=== PATIENT | female | born 1995 | race Caucasian/White ===

== ENCOUNTER → 2021-08-28 | Outpatient (CLI) | payer MEDICAID, SELFPAY ==
--- NOTE | 2021-08-28 11:05 | US_ITS ---
STUDY: SUPERFICIAL ULTRASOUND - SOFT TISSUE NECK REASON FOR EXAM: Female, 26 years old. Inflammed lymph node inferior to right ear -- Attention to paratoid, area behind/below r ear TECHNIQUE: A superficial ultrasound was performed with real-time and static boone-scale imaging. COMPARISON: None. FINDINGS: Multiple longitudinal and transverse ultrasound images of the right side of neck demonstrate a normal appearance to the parotid gland with normal size, morphology, and echogenicity. Some normal-sized lymph nodes are seen within the superficial lobe and in surrounding soft tissues. US/Head/Neck Soft Tissue IMPRESSION: Normal ultrasound of the right parotid gland. Electronically Signed: Daniel Hendricks MD at 16:15 EDT ,
== END | disposition home or self-care (01) ==
LOC: US 11:04
PROVIDERS: Referring Provider Surgery; Visit Provider Surgery
DX: I89.9 Noninfective disorder of lymphatic vessels and lymph nodes, unspecified (principal)
CPT/HCPCS: 76536

== ENCOUNTER → 2022-08-16 | Outpatient (CLI) | payer MEDICAID, SELFPAY ==
[2022-08-16 10:49] LABS: Absolute Lymphocyte Count 2.49 X10^3/uL (0.83-4.51); Absolute Neutrophil Count 5.4 X10^3/uL (2.0-7.7); Basophil# 0.05 X10^3/uL; Basophil% 0.5 % (0-1); Eosinophil# 1.23 X10^3/uL; Eosinophils% 12.8 % (0-5); Hemoglobin 14.7 g/dL (12.0-15.0); Lymphocyte # 2.49 X10^3/ul (0.83-4.51); Mean Corp Hgb Conc 33.4 g/dL (32-36); Mean Corpuscular Hgb 29.8 pg (27.0-32.0); Mean Corpuscular Volume 89.2 fL (81-99); Mean Platelet Vol. 8.2 fl (6.2-12.0); Monocyte% 4.2 % (0-10); NRBC Flagged by Analyzer 0 % (0-5); Neutrophil # 5.39 X10^3/uL (2.7-7.7); Neutrophil % 56.2 % (47-70); Platelet Count 232 K/mm3 (150-450); RBC Distribution Width CV 12.4 % (11.6-14.6); RBC Distribution Width SD 40.7 fl (35.1-43.9); Red Blood Count 4.93 M/mm3 (4.2-5.4); White Blood Count 9.6 K/mm3 (4.4-11.0)
[2022-08-16 11:09] LABS: ALB/GLOB Ratio 1.2 RATIO (0.9-2.4); AST(SGOT) 8 U/L (15-37); Alanine Aminotransfer ALT/SGPT 18 U/L (13-56); Albumin, Serum 3.9 g/dL (3.2-5.0); Alkaline Phosphatase 89 U/L (45-117); Anion Gap 4 (5-15); BUN 8 mg/dL (7-18); BUN/Creat Ratio 11.6 RATIO (10-20); Chloride 112 mmol/L (98-107); Creatinine, Serum 0.69 mg/dL (0.55-1.02); EST Glomerular Filtration Rate 107 mL/min (>60); Est Glom Filt Rate - Afr Amer 130 mL/min (>60); Globulin 3.2 g/dL (2.2-4.2); Glucose 96 mg/dL (74-106); Potassium 3.9 mmol/L (3.5-5.1); Protein, Total 7.1 g/dL (6.4-8.2); Sodium Level 140 mmol/L (136-145); Thyroid Stim Hormone (TSH) 0.89 uIU/mL (0.358-3.74)
[2022-08-16 11:38] LABS: Vitamin D,25 Hydroxy 34.7 ng/mL
== END | disposition home or self-care (01) ==
PROVIDERS: Referring Provider Psychiatry & Neurology Neurology; Visit Provider Psychiatry & Neurology Neurology
DX: K58.0 Irritable bowel syndrome with diarrhea (principal); G40.909 Epilepsy, unspecified, not intractable, without status epilepticus; E55.9 Vitamin D deficiency, unspecified; R63.6 Underweight
CPT/HCPCS: 36415; 80053; 82306; 83735; 84443; 85025; 95819

== ENCOUNTER → 2022-08-20 | Outpatient (CLI) | payer MEDICAID, SELFPAY ==
[2022-08-20 15:53] LABS: Absolute Lymphocyte Count 2.37 X10^3/uL (0.83-4.51); Absolute Neutrophil Count 3.6 X10^3/uL (2.0-7.7); Basophil# 0.07 X10^3/uL; Eosinophil# 0.82 X10^3/uL; Eosinophils% 11.2 % (0-5); Hematocrit 45.5 % (37-47); Hemoglobin 15.6 g/dL (12.0-15.0); Lymphocyte # 2.37 X10^3/ul (0.83-4.51); Lymphocyte % 32.3 % (19-41); Mean Corp Hgb Conc 34.3 g/dL (32-36); Mean Corpuscular Hgb 30.5 pg (27.0-32.0); Mean Platelet Vol. 8.4 fl (6.2-12.0); Monocyte# 0.45 X10^3/uL; Monocyte% 6.1 % (0-10); NRBC Flagged by Analyzer 0 % (0-5); Neutrophil # 3.61 X10^3/uL (2.7-7.7); Neutrophil % 49.3 % (47-70); Platelet Count 253 K/mm3 (150-450); RBC Distribution Width CV 12.3 % (11.6-14.6); RBC Distribution Width SD 40.3 fl (35.1-43.9); Red Blood Count 5.11 M/mm3 (4.2-5.4); White Blood Count 7.3 K/mm3 (4.4-11.0)
[2022-08-20 16:37] LABS: ALB/GLOB Ratio 1.3 RATIO (0.9-2.4); AST(SGOT) 9 U/L (15-37); Alanine Aminotransfer ALT/SGPT 18 U/L (13-56); Albumin, Serum 4.4 g/dL (3.2-5.0); Alkaline Phosphatase 91 U/L (45-117); Anion Gap 5 (5-15); BUN 6 mg/dL (7-18); BUN/Creat Ratio 9.7 RATIO (10-20); CRP < 2.90 mg/L (0.0-3.0); Calcium,Total 9.1 mg/dL (8.5-10.1); Chloride 112 mmol/L (98-107); Creatinine, Serum 0.62 mg/dL (0.55-1.02); EST Glomerular Filtration Rate 122 mL/min (>60); Est Glom Filt Rate - Afr Amer 147 mL/min (>60); Globulin 3.3 g/dL (2.2-4.2); Glucose 80 mg/dL (74-106); LDH 170 U/L (84-246); Potassium 3.3 mmol/L (3.5-5.1); Protein, Total 7.7 g/dL (6.4-8.2); Sodium Level 141 mmol/L (136-145)
[2022-08-20 16:56] LABS: Erythrocyte Sedimentation Rate 3 mm/hr (0-30)
[2022-08-23 08:12] LABS: Endomysial Antibody IgA Negative (Negative); Immunoglobulin A 76 mg/dL (87-352); t-Transglutaminase IgA <2 U/mL (0-3)
[2022-08-25 06:09] LABS: Albumin 4.4 g/dL (2.9-4.4); Alpha-1-Globulins 0.3 g/dL (0.0-0.4); Alpha-2-Globulins 0.8 g/dL (0.4-1.0); Cytoplasmic Ab (C-ANCA) <1:20 titer (Neg:<1:20); Gamma Globulin 0.9 g/dL (0.4-1.8); Immunoglobulin A 85 mg/dL (87-352); Immunoglobulin E 337 IU/mL (6-495); Immunoglobulin G 1036 mg/dL (586-1602); Immunoglobulin M 77 mg/dL (26-217); PROEL- TOTAL PROTEIN 7.1 g/dL (6.0-8.5); Perinuclear Ab (P-ANCA) <1:20 titer (Neg:<1:20)
== END | disposition home or self-care (01) ==
PROVIDERS: PCP Nurse Practitioner Family; Referring Provider Internal Medicine Gastroenterology; Visit Provider Internal Medicine Gastroenterology
DX: R19.5 Other fecal abnormalities (principal)
CPT/HCPCS: 80053; 82784; 82785; 83516; 83615; 84165; 85025; 85652; 86003; 86005; 86140; 86225; 86235; 86255; 86256; 86334

== ENCOUNTER → 2022-08-23 | Outpatient (CLI) | payer MEDICAID, SELFPAY ==
--- NOTE | 2022-08-23 10:44 | MRI_ITS ---
INDICATION: Generalized seizures EXAMINATION: MRI - MR Brain WO/W Contrast TECHNIQUE: MRI examination of brain obtained with standard protocol including multiplanar multiecho imaging. Pre and Postcontrast imaging obtained. IV Contrast Dosage and Agent: 9 mL Clariscan COMPARISON: None. FINDINGS: HEMISPHERES, CEREBELLUM AND BRAINSTEM: 1. The cerebral parenchyma, ventricular system, subarachnoid spaces have normal configuration and density. There is a normal gyral pattern. There is normal boone/white differentiation. No midline shift.. 2. The hemispheric white matter has normal appearance. No areas fluid restriction or acute ischemic change. 3. There is a symmetric appearance and medial temporal lobes including the amygdala and hippocampus. No evidence of focal boone matter abnormalities. 4. No intraparenchymal mass, hemorrhage, or acute territorial infarct. 5. The cerebellum, brainstem, basilar and suprasellar cisterns have normal appearance. No Chiari malformation. 6. No areas of abnormal intraparenchymal or extra-axial contrast enhancement. PITUITARY: Infundibulum and pituitary have normal configuration. Midline structures appear normal. CSF SPACES: Appropriate for age. No hydrocephalus. Basal cisterns are patent. VESSELS: 1. There are normal flow voids noted in the great vessels at the skull base ORBITS AND PARANASAL SINUSES: 1. Both globes, extraocular muscles, optic nerves and retrobulbar fat appear unremarkable. 2. Paranasal sinuses are clear. BONY ELEMENTS: Bony elements of the cranial vault, facial skeleton and skull base have normal appearance. SCALP AND SOFT TISSUES: Normal appearance of the soft tissues of the scalp and the visualized face OTHER: None MRI/Brain W/WO Contrast IMPRESSION: 1. No intracranial mass, hemorrhage, or acute territorial infarct. No areas of abnormal contrast enhancement. 2. Symmetric appearance of medial temporal lobes including the amygdala and hippocampus without focal boone matter abnormality. No evidence of migrational or developmental abnormalities. No structural abnormality identified to correspond to history of seizure. 3. No radiographically significant sinus disease. Electronically Signed: Daniel Mckeon MD at 22:13 EDT ,
== END | disposition home or self-care (01) ==
LOC: MRI 10:41
PROVIDERS: PCP Nurse Practitioner Family; Referring Provider Psychiatry & Neurology Neurology; Visit Provider Psychiatry & Neurology Neurology
DX: G40.909 Epilepsy, unspecified, not intractable, without status epilepticus (principal)
CPT/HCPCS: 70553; A9575

== ENCOUNTER → 2022-11-14 | Outpatient (CLI) | payer MEDICAID, SELFPAY ==
--- NOTE | 2022-11-14 09:31 | MRI_ITS ---
STUDY: MR ENTEROGRAPHY WITH CONTRAST REASON FOR EXAM: Female, 27 years old. R19.5 - Other fecal abnormalities --chronic diarrhea TECHNIQUE: Multipulse sequence MRI performed with IV contrast according to standard MR enterography protocol following administration of oral contrast for maximal bowel distention. Images were obtained from the dome of the diaphragm to the symphysis pubis. IV clariscan 9ml was administered intravenously. TECHNICAL QUALITY: Image Quality: Satisfactory Small Bowel Distension: Adequate. COMPARISON: None. FINDINGS: Bowel: Bowel wall thickening: Absent. Skip lesions: None. Vascularity: Normal. Enhancement: Normal. Fistula: None. Abscess: None. Other Findings: The lung bases are unremarkable. The visualized portions of the heart are within normal limits Normal liver. Normal gallbladder and extrahepatic biliary system. Normal spleen. Normal pancreas. Normal bilateral adrenal glands. Normal right kidney. Normal left kidney. Normal visualized stomach. Normal colon. The appendix is visualized and appears normal. Normal abdominal aorta. Normal interior vena cava. Normal retroperitoneum. Normal urinary bladder. Normal abdominal wall. Normal osseous structures. MRI/Enterography Abd/Pel IMPRESSION: Normal MR enterography. No bowel wall thickening/mucosal enhancement/bowel stratification/active enteritis. Electronically Signed: Caleb Ferris MD ([place]) at 16:09 EDT Reading Location ID and State: / [place] , Service support ,
[2022-11-14 10:21] VITALS: BP 137/75; PULSE 97; RESP 16; TEMP 36.7; O2SAT 100; BMI 16.9
[2022-11-14] MEDS: Glucagon 1 MG/ML Syringe IV (11:06)
[2022-11-14] MEDS: 0.9% Saline Lock 10 ML Syringe IV (11:08)
[2022-11-14 11:24] VITALS: BP 129/71; PULSE 90; RESP 15; O2SAT 100
== END | disposition home or self-care (01) ==
LOC: MRI 09:11
PROVIDERS: PCP Nurse Practitioner Family; Referring Provider Internal Medicine Gastroenterology; Visit Provider Internal Medicine Gastroenterology
DX: R19.5 Other fecal abnormalities (principal)
CPT/HCPCS: 74183; 96374; A9575; A4216; J1610

== ENCOUNTER → 2022-11-16 | Outpatient (CLI) | payer MEDICAID, SELFPAY ==
[2022-11-20 21:07] LABS: Pancreatic Elastase, Fecal > 500 (>200)
[2022-11-26 22:06] LABS: Calprotectin, Stool 6 ug/g (0-120); Fats, Neutral Normal (.); Fats, Total Normal (.)
== END | disposition home or self-care (01) ==
LOC: LABSPEC 10:42
PROVIDERS: Referring Provider Internal Medicine Gastroenterology; Visit Provider Internal Medicine Gastroenterology
DX: K58.9 Irritable bowel syndrome, unspecified (principal); R19.5 Other fecal abnormalities
CPT/HCPCS: 82653; 82705; 83630; 83993; 87177; 87209; 87329; 87493; 87506

== ENCOUNTER → 2022-12-06 | Outpatient (CLI) | payer MEDICAID, SELFPAY ==
[2022-12-06 15:23] LABS: Potassium 3.1 mmol/L (3.5-5.1)
== END | disposition home or self-care (01) ==
LOC: MTLAB 12:47
PROVIDERS: Referring Provider Psychiatry & Neurology Neurology; Visit Provider Psychiatry & Neurology Neurology
DX: E87.6 Hypokalemia (principal)
CPT/HCPCS: 36415; 84132

== ENCOUNTER → 2022-12-27 | Outpatient (CLI) | payer MEDICAID, SELFPAY ==
--- NOTE | 2022-12-27 10:32 | NM_ITS ---
CLINICAL: 27-year-old female with history of abdominal pain. SEMI-SOLID PHASE 99m Tc SULFUR COLLOID GASTRIC EMPTYING STUDY COMPARISON: MRI of the abdomen report 11/14/2022 FINDINGS: The patient was administered 1.0 mCi of 99m Tc sulfur colloid mixed with oatmeal and consumed per os. Image acquisitions in the anterior -posterior projections were obtained for 60 minutes. There is prompt visualization of the stomach. There is no gastroesophageal reflux identified. The T ? raw data emptying was calculated to be 51.59 minutes, (Normal: 12-56 minutes). NM/Gastric Emptying Study IMPRESSION: 1. NORMAL 99m Tc sulfur colloid semi-solid phase (oatmeal) gastric emptying imaging examination. A. There is upper limits of normal and overall preserved semi-solid phase gastric emptying compared to normal controls. (Kyung et al, J Nucl Med Tech 38: 186, 2010). Electronically Signed: Daniel Santillan DO at 22:32 EDT ,
== END | disposition home or self-care (01) ==
LOC: NM 10:29
PROVIDERS: Referring Provider Internal Medicine Gastroenterology; Visit Provider Internal Medicine Gastroenterology
DX: R19.5 Other fecal abnormalities (principal); R10.9 Unspecified abdominal pain
CPT/HCPCS: 78264; A9541